=== PATIENT | female | born 1930 ===

== ENCOUNTER 2018-01-31 11:59 | Emergency (ER) | payer MEDICARE, OTHER ==
[2018-01-31 12:33] VITALS: TEMP 98.1
--- NOTE | 2018-01-31 13:15 | ED PDOC ---
HPI: General Adult Time Seen by Provider: 01/31/18 12:42 Chief Complaint (Nursing): Dizziness/Lightheaded Chief Complaint (Provider): Dizziness/Lightheaded History Per: Patient History/Exam Limitations: no limitations Onset/Duration Of Symptoms: Days (x 2) Current Symptoms Are (Timing): Still Present Recently: Treated By A Physician Additional Complaint(s): 87 year old female with a history of depression presents to the ED with generalized weakness, dizziness and 2 episodes of vomiting in the last 2 days. Patient reports she has lost a significant amount of weight recently because she has no appetite. She lives alone and admits that she is severely depressed. Requests to talk to a crisis counselor about her depression. Denies chest pain, shortness of breath, urinary symptoms and loss of consciousness. PMD: Dr. Raad Farris Against Medical Advice - AMA Patient Left Against Medical Advice: The patient declines admission to the hospital and wishes to leave the Emergency Department. This action is against my medical advice. This decision was made with informed refusal. The patient was told that admission to the hospital is necessary. Explanation of the reasons why were discussed. The risks of leaving were explained to the patient and include, but are not limited to, worsening of known or currently unknown conditions, permanent disability and from undiagnosed or untreated conditions. The patient has the capacity to make this informed decision and understands my explanation of the current medical problem and risks of leaving. The patient voluntarily accepts these risks and signed an AMA form documenting our conversation. The patient was given the opportunity to ask questions and reconsider. The patient was encouraged to return to the Emergency Department at any time for further care. 01/31/18 13:27 Past Medical History Reviewed: Historical Data, Nursing Documentation, Vital Signs Vital Signs: Last Vital Signs Temp 98.1 F 01/31/18 15:04 Pulse 70 01/31/18 15:04 Resp 16 01/31/18 15:04 BP 154/86 H 01/31/18 15:04 Pulse Ox 96 01/31/18 15:04 - Medical History PMH: Arthritis, HTN, Hypothyroidism - Surgical History Surgical History: No Surg Hx - Family History Family History: States: Unknown Family Hx - Home Medications Home Medications: Ambulatory Orders Medication Instructions Recorded Nitrofurantoin Macrocrystals 100 mg PO BID #14 cap 10/04/14 [Macrobid] Ondansetron [Zofran Odt] 4 mg PO Q8 #12 odt 10/04/14 Ibuprofen [Motrin] 600 mg PO Q6H PRN #20 tab 01/12/16 - Allergies Allergies/Adverse Reactions: Allergies Allergy/AdvReac Type Severity Reaction Status Date / Time No Known Allergies Allergy Verified 08/24/15 12:12 Review of Systems ROS Statement: Except As Marked, All Systems Reviewed And Found Negative Constitutional: Positive for: Weight loss (due to lack of appetite ) Gastrointestinal: Positive for: Vomiting (2 episodes in 2 days) Physical Exam - Reviewed Nursing Documentation Reviewed: Yes Vital Signs Reviewed: Yes - Physical Exam Appears: Positive for: Non-toxic, No Acute Distress Head Exam: Positive for: ATRAUMATIC, NORMAL INSPECTION, NORMOCEPHALIC Skin: Positive for: Normal Color, Warm, Dry Eye Exam: Positive for: EOMI, Normal appearance, PERRL Neck: Positive for: Normal, Painless ROM, Supple Cardiovascular/Chest: Positive for: Regular Rate, Rhythm. Negative for: Murmur Respiratory: Positive for: Normal Breath Sounds. Negative for: Respiratory Distress Gastrointestinal/Abdominal: Positive for: Normal Exam, Soft Extremity: Positive for: Normal ROM. Negative for: Deformity Neurologic/Psych: Positive for: Alert, Oriented (x 3). Negative for: Motor/ Sensory Deficits - Laboratory Results Result Diagrams: 01/31/18 13:57 01/31/18 13:57 - ECG O2 Sat by Pulse Oximetry: 96 (RA) Pulse Ox Interpretation: Normal - Progress Re-evaluation Time: 15:00 Condition: Re-examined, Improved Medical Decision Making Medical Decision Makin:06 Impression: generalized weakness Initial Plan: --EKG --BMP --CBC --Troponin --urine dip Initial blood pressure was 191/89. 13:36 --Patient has decided to sign out against medical advice. Return precautions provided. 13:47 --Patient has decided against signing out AMA and wants to continue with further investigation. 15:00 --Labs were reviewed and are unremarkable. Patient refused to give urine. She is stable and will be discharged. Follow up with PMD and return if symptoms persist or worsen. Scribe Attestation: Documented by Elham Jones, acting as a scribe for Brenda Ochoa MD Provider Scribe Attestation: All medical record entries made by the Scribe were at my direction and personally dictated by me. I have reviewed the chart and agree that the record accurately reflects my personal performance of the history, physical exam, medical decision making, and the department course for this patient. I have also personally directed, reviewed, and agree with the discharge instructions and disposition. Disposition - Clinical Impression Clinical Impression: Dizziness, Decreased appetite - Patient ED Disposition Is Patient to be Admitted: No - Disposition Referrals: Cruz Farris MD [Staff Provider] - Disposition Time: 15:01 Condition: GOOD Additional Instructions: Follow up with your PCP in 2-3 days. Instructions: Christopher Nonvertigo, (DC) Print Language: KENYAN
[2018-01-31 14:29] LABS: BLOOD UREA NITROGEN 14 mg/dl (7-17); CALCIUM 10.2 mg/dL (8.4-10.2); GFR AFRICAN-AMERICAN > 60; GFR NON-AFRICAN AMERICAN > 60
[2018-01-31 14:33] LABS: BASO # 0.1 K/uL (0.0-0.2); BASO % 0.8 % (0.0-2.0); EOS % 0.3 % (0.0-4.0); HEMOGLOBIN 14.5 g/dL (12.0-16.0); LYMPH # 1.8 K/uL (1.0-4.3); LYMPH % 27.3 % (20.0-40.0); MEAN CELL VOLUME 93.7 fl (81.0-99.0); MEAN CORPUSCULAR HEMOGLOBIN 30.9 pg (27.0-31.0); MEAN PLATELET VOLUME 10.2 fl (7.2-11.7); MONO # 0.4 K/uL (0.0-0.8); MONO % 6.8 % (0.0-10.0); NEUT # 4.2 K/uL (1.8-7.0); NEUT % 64.8 % (50.0-75.0); RBC 4.7 Mil/uL (3.80-5.20); RED CELL DISTRIBUTION WIDTH 14.9 % (11.5-14.5); WHITE BLOOD COUNT 6.5 K/uL (4.8-10.8)
[2018-01-31 15:01] VITALS: O2SAT 96
[2018-01-31 15:05] VITALS: BP 154/86; PULSE 70; RESP 16
--- NOTE | 2018-02-01 09:20 | CARD ---
APPROVED REPORT Date of service: 01/31/2018 EKG Measurement Heart [id number] <Conclusion> Sinus rhythm with premature ventricular complexes or fusion complexes Left bundle branch block Abnormal ECG
== END 2018-01-31 15:04 | disposition home or self-care (01) ==
LOC: H.ER 11:59
DX: R42 Dizziness and giddiness (principal); R63.0 Anorexia; E03.9 Hypothyroidism, unspecified; F32.9 Major depressive disorder, single episode, unspecified; I10 Essential (primary) hypertension